=== PATIENT | female | born 1970 | race American Indian/Alaskan Native ===

== ENCOUNTER 2020-06-24 17:28 | Inpatient (IN) | payer OTHER ==
[2020-06-24] MEDS ORDERED: ASPIRIN 81 MG TAB CHEW PO ONE (17:41)
--- NOTE | 2020-06-24 17:45 | Emergency Department Report ---
ED Chest Pain HPI - General Stated Complaint: CHEST PAIN Time Seen by Provider: 06/24/20 17:41 Source: patient, EMS - History of Present Illness Initial Comments: Patient is 50 years old female with history of hypertension. Patient stated that she has been taking lisinopril 10 mg twice a day however she ran out of her medication 1 week ago. Patient brought to the emergency room via EMS from home for sudden onset of chest pain, substernal pressure-like. Patient stated that pain was 8 out of 10 however patient stated that her blood pressure completely resolved by the time she got to the ER. Patient denied any shortness of breath, fever or chills. Patient found to have a blood pressure of 229 over 118. MD Complaint: chest pain -: Sudden, This afternoon Onset: during rest Pain Location: substernal Pain Radiation: none Severity scale (0 -10): 8 Quality: tightness, heaviness Consistency: now resolved Improves With: nothing Worsens With: nothing Treatments Prior to Arrival: none - Related Data Allergies Allergy/AdvReac Type Severity Reaction Status Date / Time No Known Allergies Allergy Verified 06/24/20 18:11 Heart Score - HEART Score History: Moderately suspicious EKG: Non-specific Age: 45-65 Risk factors: 1-2 risk factors Troponin: < normal limit HEART Score: 4 - EKG Read Time Time EKG Completed: 18:08 EKG Read Time: 18:08 ED Review of Systems ROS: Stated complaint: CHEST PAIN Other details as noted in HPI Comment: All other systems reviewed and negative Respiratory: denies: cough, shortness of breath, SOB with exertion, SOB at rest Cardiovascular: chest pain. denies: palpitations Gastrointestinal: denies: abdominal pain, nausea, vomiting Musculoskeletal: denies: back pain Neurological: denies: headache, weakness, numbness, paresthesias, confusion ED Physical Exam - General General appearance: alert, in no apparent distress - Head Head exam: Present: atraumatic, normocephalic, normal inspection - Eye Eye exam: Present: normal appearance - ENT ENT exam: Present: normal exam, normal orophraynx, mucous membranes moist - Neck Neck exam: Present: normal inspection, full ROM. Absent: tenderness, meningis mus - Respiratory Respiratory exam: Present: normal lung sounds bilaterally - Cardiovascular Cardiovascular Exam: Present: regular rate, normal rhythm, normal heart sounds - GI/Abdominal GI/Abdominal exam: Present: soft, normal bowel sounds. Absent: distended, tenderness, guarding, rebound, rigid, mass, bruit, pulsatile mass, hernia - Extremities Exam Extremities exam: Present: normal inspection, full ROM, normal capillary refill. Absent: tenderness - Back Exam Back exam: Present: normal inspection, full ROM. Absent: CVA tenderness (R), CVA tenderness (L) - Neurological Exam Neurological exam: Present: alert, oriented X3, CN II-XII intact - Psychiatric Psychiatric exam: Present: normal mood - Skin Skin exam: Present: warm, intact, normal color ED Course Vital Signs 06/24/20 06/24/20 17:53 18:44 Temperature 98.4 F Pulse Rate 73 68 Respiratory 24 Rate Blood Pressure 220/126 Blood Pressure 229/118 [Left] O2 Sat by Pulse 100 Oximetry ED Medical Decision Making - Lab Data Result diagrams: 06/24/20 18:17 06/24/20 18:17 - EKG Data -: EKG Interpreted by Vt EKG shows normal: sinus rhythm Rate: normal - EKG Data Interpretation: no acute changes - Radiology Data Radiology results: report reviewed - Medical Decision Making Patient is 50 years old female with history of hypertension. Patient stated that she has been taking lisinopril 10 mg twice a day however she ran out of her medication 1 week ago. Patient brought to the emergency room via EMS from home for sudden onset of chest pain, substernal pressure-like. Patient stated that pain was 8 out of 10 however patient stated that her blood pressure completely resolved by the time she got to the ER. Patient denied any shortness of breath, fever or chills. Patient found to have a blood pressure of 229 over 118. EKG showed no ST elevation. Labs reviewed and is unremarkable. Patient received Lopressor with no significant improvement in blood pressure. Patient started on Cardene drip. Discussed the patient with Dr. Baird, he agreed to admit the patient to medical service for further management. Critical Care Time: Yes Critical care time in (mins) excluding proc time.: 30 Critical care attestation.: If time is entered above; I have spent that time in minutes in the direct care of this critically ill patient, excluding procedure time. ED Disposition Clinical Impression: Acute chest pain, Hypertensive emergency Disposition: OP ADMIT IP TO THIS HOSP Is pt being admited?: Yes Condition: Stable Instructions: Chest Pain (ED), Hypertension (ED) Referrals: PRIMARY CARE,MD [Primary Care Provider] - 3-5 Days
[2020-06-24] MEDS ORDERED: METOPROLOL TARTRATE 5 MG/5 ML INJ IV ONE (18:13)
--- NOTE | 2020-06-24 18:14 | XRay Report ---
CHEST 1 VIEW 06/24/2020 5:07 PM INDICATION / CLINICAL INFORMATION: Chest Pain. COMPARISON: 01/15/2010 FINDINGS: SUPPORT DEVICES: None. HEART / MEDIASTINUM: Mild cardiomegaly. Hilar and mediastinal contours are otherwise unremarkable. LUNGS / PLEURA: No significant pulmonary or pleural abnormality. No pneumothorax. ADDITIONAL FINDINGS: No significant additional findings. IMPRESSION: 1. No convincing evidence of acute cardiopulmonary process. 2. Cardiac silhouette appears mildly enlarged suggesting mild cardiomegaly. Signer Name: London Mcdaniel MD Signed: 06/24/2020 6:10 PM Workstation Name: [id number]
[2020-06-24 18:37] LABS: Basophils # (Auto) 0.2 K/mm3 (0.0-0.1); Basophils % (Auto) 2.5 % (0.0-1.8); Eosinophils # (Auto) 0.1 K/mm3 (0.0-0.4); Eosinophils % (Auto) 1.9 % (0.0-4.3); Hematocrit 33.9 % (30.3-42.9); Lymphocytes # (Auto) 0.8 K/mm3 (1.2-5.4); Lymphocytes % (Auto) 12.5 % (13.4-35.0); Mean Corpuscular HGB Conc 32 % (30-34); Mean Corpuscular Volume 92 fl (79-97); Monocytes # (Auto) 0.4 K/mm3 (0.0-0.8); Monocytes % (Auto) 6.6 % (0.0-7.3); Platelet Count 184 K/mm3 (140-440); Red Cell Distribution Width 19.3 % (13.2-15.2)
[2020-06-24 18:44] LABS: INR 0.95 (0.87-1.13)
[2020-06-24 18:45] LABS: Partial Thromboplastin Time 24.7 Sec. (24.2-36.6)
[2020-06-24 18:55] LABS: BUN/Creatinine Ratio 13; Blood Urea Nitrogen 24 mg/dL (7-17); Calcium 8.6 mg/dL (8.4-10.2); Hemolysis Index 6
[2020-06-24 18:59] LABS: Alanine Aminotransferase 8 units/L (7-56); Albumin 4.1 g/dL (3.9-5)
[2020-06-24 19:00] LABS: Bilirubin,Direct < 0.2 mg/dL (0-0.2)
[2020-06-24] MEDS ORDERED: niCARdipine DRIP 40 MG/200 ML BAG ONE (22:01)
[2020-06-24] MEDS: niCARdipine 50 MG in SODIUM CHLORIDE 0.9% 250ML 230 ML IV SCH (22:22)
[2020-06-24] MEDS ORDERED: oxyCODONE /ACETAMINOPHEN 5-325MG TAB PO PRN (23:45)
[2020-06-24] MEDS ORDERED: SODIUM CHLORIDE 0.45% 1000 ML 1,000 ML IV SCH (23:45)
[2020-06-24] MEDS ORDERED: MORPHINE 2 MG/1 ML INJ IV PRN (23:45)
[2020-06-24] MEDS ORDERED: FAMOTIDINE 20 MG/2 ML INJ IV SCH ×2 (23:45)
[2020-06-24] MEDS ORDERED: METOCLOPRAMIDE 10 MG/2 ML INJ IV PRN (23:45)
[2020-06-24] MEDS ORDERED: ONDANSETRON 4 MG/2 ML INJ IV PRN (23:45)
--- NOTE | 2020-06-24 23:45 | History and Physical Report ---
History of Present Illness Date of examination: 06/24/20 Date of admission: 06/24/20 19:28 Chief complaint: Substernal chest pain since 2 hours History of present illness: 50-year-old -[place] female with history of hypertension on lisinopril 10 mg twice a day brought in by EMS for sudden onset of chest pain which is substernal for the last 2 hours. Chest pain is about 7-8 on a scale of 1-10. Patient has not been taking her lisinopril for the last 1 week. Patient is noncompliant with her medications. Patient has a history of hypertension. No other than hypertension there is no significant past medical history. No exposure to coronavirus. No orthopnea. No exertional dyspnea. Heart Score - HEART Score History: Moderately suspicious EKG: Non-specific Age: 45-65 Risk factors: 1-2 risk factors Troponin: < normal limit HEART Score: 4 - EKG Read Time Time EKG Completed: 18:08 EKG Read Time: 18:08 past medical history hypertension past surgical history n/a Family history hypertension social history no smoking Review of Systems Constitutional no weight loss or weight gain no fever or chills HEENT no sore throat no post nasal drip no diplopia Neck no neck stiffness no lymph gland enlargement Chest and lungs chest pressure for 2 hours CVS no chest pain no diaphoresis no palpitations GI no nausea no vomiting no diarrhea Genitourinary system no dysuria no flank pain Musculoskeletal system no muscle pains no joint pains [employer] no syncope no seizures Skin no rash no itching Psychiatric no depression no homicidal or suicidal tendencies Hematologic no lymphedema or bruising Endocrine no polydipsia no polyuria no cold intolerance no heat intolerance Medications and Allergies Allergies Allergy/AdvReac Type Severity Reaction Status Date / Time No Known Allergies Allergy Verified 06/24/20 18:11 Active Meds: Active Medications Nicardipine HCl 50 mg/ Sodium (Chloride) 250 mls @ 25 mls/hr IV TITR THAIS; Protocol Last Titration: 06/24/20 23:00 Dose: 10 mg/hr, 50 mls/hr Documented by: Exam - Constitutional Vitals: Temp Pulse Resp BP Pulse Ox 98.4 F 68 24 220/126 100 06/24/20 17:53 06/24/20 18:44 06/24/20 17:53 06/24/20 18:44 06/24/20 17:53 General appearance: Present: no acute distress, well-nourished - EENT Eyes: Present: PERRL ENT: hearing intact, clear oral mucosa - Neck Neck: Present: supple, normal ROM - Respiratory Respiratory effort: normal Respiratory: bilateral: CTA - Cardiovascular Heart rate: 78 Rhythm: regular Heart Sounds: Present: S1 & S2. Absent: rub, click - Extremities Extremities: pulses symmetrical, No edema Peripheral Pulses: within normal limits - Abdominal General gastrointestinal: Present: soft, non-tender, non-distended, normal bowel sounds Female genitourinary: Present: normal - Integumentary Integumentary: Present: clear, warm, dry - Musculoskeletal Musculoskeletal: gait normal, strength equal bilaterally - Psychiatric Psychiatric: appropriate mood/affect, intact judgment & insight - Neurologic Neurologic: CNII-XII intact, moves all extremities HEART Score - HEART Score EKG: Non-specific Age: 45-65 Risk factors: 1-2 risk factors Troponin: Troponin T < 0.010 ng/mL (0.00-0.029) 06/24/20 20:46 Troponin: < normal limit Results - Labs CBC & Chem 7: 06/24/20 18:17 06/24/20 18:17 Labs: Laboratory Last Values WBC 6.7 K/mm3 (4.5-11.0) 06/24/20 18:17 RBC 3.70 M/mm3 (3.65-5.03) 06/24/20 18:17 Hgb 11.0 gm/dl (10.1-14.3) 06/24/20 18:17 Hct 33.9 % (30.3-42.9) 06/24/20 18:17 MCV 92 fl (79-97) 06/24/20 18:17 MCH 30 pg (28-32) 06/24/20 18:17 MCHC 32 % (30-34) 06/24/20 18:17 RDW 19.3 % (13.2-15.2) H 06/24/20 18:17 Plt Count 184 K/mm3 (140-440) 06/24/20 18:17 Lymph % (Auto) 12.5 % (13.4-35.0) L 06/24/20 18:17 [place] % (Auto) 6.6 % (0.0-7.3) 06/24/20 18:17 Eos % (Auto) 1.9 % (0.0-4.3) 06/24/20 18:17 Baso % (Auto) 2.5 % (0.0-1.8) H 06/24/20 18:17 Lymph # (Auto) 0.8 K/mm3 (1.2-5.4) L 06/24/20 18:17 [place] # (Auto) 0.4 K/mm3 (0.0-0.8) 06/24/20 18:17 Eos # (Auto) 0.1 K/mm3 (0.0-0.4) 06/24/20 18:17 Baso # (Auto) 0.2 K/mm3 (0.0-0.1) H 06/24/20 18:17 Seg Neutrophils % 76.5 % (40.0-70.0) H 06/24/20 18:17 Seg Neutrophils # 5.1 K/mm3 (1.8-7.7) 06/24/20 18:17 PT 12.5 Sec. (12.2-14.9) 06/24/20 18:17 INR 0.95 (0.87-1.13) 06/24/20 18:17 APTT 24.7 Sec. (24.2-36.6) 06/24/20 18:17 Sodium 137 mmol/L (137-145) 06/24/20 18:17 Potassium 4.5 mmol/L (3.6-5.0) 06/24/20 18:17 Chloride 102.6 mmol/L (98-107) 06/24/20 18:17 Carbon Dioxide 26 mmol/L (22-30) 06/24/20 18:17 Anion Gap 13 mmol/L 06/24/20 18:17 BUN 24 mg/dL (7-17) H 06/24/20 18:17 Creatinine 1.9 mg/dL (0.6-1.2) H 06/24/20 18:17 Estimated GFR 34 ml/min 06/24/20 18:17 BUN/Creatinine Ratio 13 % 06/24/20 18:17 Glucose 81 mg/dL (65-100) 06/24/20 18:17 Calcium 8.6 mg/dL (8.4-10.2) 06/24/20 18:17 Total Bilirubin 0.30 mg/dL (0.1-1.2) 06/24/20 18:17 Direct Bilirubin < 0.2 mg/dL (0-0.2) 06/24/20 18:17 Indirect Bilirubin 0.1 mg/dL 06/24/20 18:17 AST 16 units/L (5-40) 06/24/20 18:17 ALT 8 units/L (7-56) 06/24/20 18:17 Alkaline Phosphatase 57 units/L (35-129) 06/24/20 18:17 Troponin T < 0.010 ng/mL (0.00-0.029) 06/24/20 20:46 NT-Pro-B Natriuret Pep 2780 pg/mL (0-450) H 06/24/20 18:33 Total Protein 6.6 g/dL (6.3-8.2) 06/24/20 18:17 Albumin 4.1 g/dL (3.9-5) 06/24/20 18:17 Albumin/Globulin Ratio 1.6 % 06/24/20 18:17 Short CBC 06/24/20 Range/Units 18:17 WBC 6.7 (4.5-11.0) K/mm3 Hgb 11.0 (10.1-14.3) gm/dl Hct 33.9 (30.3-42.9) % Plt Count 184 (140-440) K/mm3 BMP 06/24/20 18:17 Sodium 137 Potassium 4.5 Chloride 102.6 Carbon Dioxide 26 BUN 24 H Creatinine 1.9 H Glucose 81 Calcium 8.6 Cardiac Enzymes 06/24/20 06/24/20 Range/Units 18:17 20:46 Troponin T < 0.010 < 0.010 (0.00-0.029) ng/mL Liver Function 06/24/20 Range/Units 18:17 Total Bilirubin 0.30 (0.1-1.2) mg/dL Direct Bilirubin < 0.2 (0-0.2) mg/dL AST 16 (5-40) units/L ALT 8 (7-56) units/L Alkaline Phosphatase 57 (35-129) units/L Albumin 4.1 (3.9-5) g/dL - Imaging and Cardiology EKG: report reviewed (Sinus rhythm, heart rate of 64/min, no LVH by voltage criteria. No acute ST-T wave changes.) Chest x-ray: report reviewed (No acute findings., Mild cardiomegaly.) Assessment and Plan Advance Directives: Yes (Full code) Plan of care discussed with patient/family: Yes - Patient Problems (1) Hypertensive emergency Current Visit: Yes Status: Acute Plan to address problem: Patient initiated on IV Cardene drip. Lisinopril stopped. Well patient started on valsartan 160 every 12 Hydralazine 50 every 8 Coreg 12.5 every 12. Patient to be admitted to ICU. (2) Acute coronary syndrome Current Visit: Yes Status: Acute Plan to address problem: Work-up for chest pain rule out [place] protocol Serial troponins Lexiscan if possible on Friday (3) PERCY (acute kidney injury) Current Visit: Yes Status: Acute Plan to address problem: Possible underlying chronic kidney disease secondary to hypertension which is uncontrolled IV half-normal saline for now Recheck creatinine level in the morning (4) DVT prophylaxis Current Visit: Yes Status: Acute Plan to address problem: On heparin and GI prophylaxis
[2020-06-25] MEDS: hydrALAZINE 25 MG TAB PO SCH ×4 (00:37→21:23)
[2020-06-25] MEDS: VALSARTAN 160MG TAB PO SCH ×2 (00:38→10:08)
[2020-06-25] MEDS: carvediloL 12.5 MG TAB PO SCH ×3 (00:38→21:23)
[2020-06-25] MEDS: HEPARIN 5,000 UNIT/1 ML VIAL SUB-Q SCH ×3 (00:39→21:25)
[2020-06-25] MEDS: niCARdipine 50 MG in SODIUM CHLORIDE 0.9% 250ML 230 ML IV SCH ×2 (02:39→07:00)
[2020-06-25 08:30] LABS: Albumin 3.3 g/dL (3.9-5); Calcium 8.2 mg/dL (8.4-10.2)
[2020-06-25] MEDS: FAMOTIDINE 10 MG TAB PO SCH ×2 (10:09→21:23)
--- NOTE | 2020-06-25 11:04 | Consultation ---
History of Present Illness - Reason for Consult Consult date: 06/25/20 Hypertensive Emergency - History of Present Illness 50 y/o female with known HTN admitted with Hypertensive Emergency with chest pain and acute renal failure (presumed). Patient has not been evaluated in this system before. She presented to the ED on yesterday with chest pain and found to have systolics >200 and Diastolics >100. No shortness of breath. No changes in meds but did run out of bp meds about 1 week prior. Past History Past Medical History: hypertension Past Surgical History: No surgical history Social history: no significant social history Family history: no significant family history Medications and Allergies Allergies Allergy/AdvReac Type Severity Reaction Status Date / Time No Known Allergies Allergy Verified 06/24/20 18:11 Active Meds: Active Medications Acetaminophen (Acetaminophen 325 Mg Tab) 650 mg PO Q4H PRN PRN Reason: Pain MILD(1-3)/Fever >100.5/JUAREZ Amlodipine Besylate (Amlodipine 5 Mg Tab) 5 mg PO QDAY THAIS Carvedilol (Carvedilol 12.5 Mg Tab) 12.5 mg PO BID [facility] Last Admin: 06/25/20 10:08 Dose: Not Given Documented by: Famotidine (Famotidine 10 Mg Tab) 10 mg PO BID [facility] Last Admin: 06/25/20 10:09 Dose: 10 mg Documented by: Heparin Sodium (Porcine) (Heparin 5,000 Unit/1 Ml Vial) 5,000 unit SUB-Q Q12HR [facility] Last Admin: 06/25/20 10:09 Dose: 5,000 unit Documented by: Hydralazine HCl (Hydralazine 25 Mg Tab) 50 mg PO Q8HR [facility] Last Admin: 06/25/20 06:28 Dose: 50 mg Documented by: Nicardipine HCl 50 mg/ Sodium (Chloride) 250 mls @ 25 mls/hr IV TITR THAIS; Protocol Last Titration: 06/25/20 08:17 Dose: 0 mg/hr, 0 mls/hr Documented by: Sodium Chloride (Nacl 0.45% 1000 Ml) 1,000 mls @ 42 mls/hr IV DIRECT THAIS Last Admin: 06/25/20 00:43 Dose: 42 mls/hr Documented by: Metoclopramide HCl (Metoclopramide 10 Mg/2 Ml Inj) 10 mg IV Q6H PRN PRN Reason: Nausea And Vomiting Morphine Sulfate (Morphine 2 Mg/1 Ml Inj) 2 mg IV Q4H PRN PRN Reason: Pain, Moderate (4-6) Ondansetron HCl (Ondansetron 4 Mg/2 Ml Inj) 4 mg IV Q8H PRN PRN Reason: Nausea And Vomiting Oxycodone/Acetaminophen (Oxycodone /Acetaminophen 5-325mg Tab) 1 tab PO Q6H PRN PRN Reason: Pain, Moderate (4-6) Sodium Chloride (Sodium Chloride 0.9% 10 Ml Flush Syringe) 10 ml IV BID [facility] Last Admin: 06/25/20 10:10 Dose: 10 ml Documented by: Sodium Chloride (Sodium Chloride 0.9% 10 Ml Flush Syringe) 10 ml IV PRN PRN PRN Reason: LINE FLUSH Valsartan (Valsartan 160mg Tab) 160 mg PO Q12HR [facility] Last Admin: 06/25/20 10:08 Dose: Not Given Documented by: Review of Systems All systems: negative Exam - Constitutional Vitals: Temp Pulse Resp BP Pulse Ox 98.1 F 57 L 13 138/82 98 06/25/20 08:00 06/25/20 10:08 06/25/20 08:11 06/25/20 10:08 06/25/20 08:11 Results - Labs CBC & Chem 7: 06/24/20 18:17 06/25/20 07:25 Labs: Abnormal lab results 06/24/20 06/24/20 06/24/20 Range/Units 18:17 18:17 18:33 RDW 19.3 H (13.2-15.2) % Lymph % (Auto) 12.5 L (13.4-35.0) % Baso % (Auto) 2.5 H (0.0-1.8) % Lymph # (Auto) 0.8 L (1.2-5.4) K/mm3 Baso # (Auto) 0.2 H (0.0-0.1) K/mm3 Seg Neutrophils % 76.5 H (40.0-70.0) % BUN 24 H (7-17) mg/dL Creatinine 1.9 H (0.6-1.2) mg/dL Calcium (8.4-10.2) mg/dL ALT (7-56) units/L NT-Pro-B Natriuret Pep 2780 H (0-450) pg/mL Albumin (3.9-5) g/dL 06/25/20 Range/Units 07:25 RDW (13.2-15.2) % Lymph % (Auto) (13.4-35.0) % Baso % (Auto) (0.0-1.8) % Lymph # (Auto) (1.2-5.4) K/mm3 Baso # (Auto) (0.0-0.1) K/mm3 Seg Neutrophils % (40.0-70.0) % BUN 22 H (7-17) mg/dL Creatinine 1.9 H (0.6-1.2) mg/dL Calcium 8.2 L (8.4-10.2) mg/dL ALT 6 L (7-56) units/L NT-Pro-B Natriuret Pep (0-450) pg/mL Albumin 3.3 L (3.9-5) g/dL - Imaging and Cardiology Chest x-ray: image reviewed (clear, cardiomegaly) Assessment and Plan 50 y/o female with hypertensive urgency and chest pain. 1. BP and HR and control 2. Chest pain is concerning, IMS has consulted cardiology. My concern would be dissection but unable to check CTA at this time given renal function. May need renal consult. Chest pain is improving 3. Suggest holding ARB with renal failure. Could add norvasc to hydralazine and coreg if needed 4. Consider echo given heart size on CXR 5. Stable for transfer to floor. Systolics to 140-160 are acceptable. Follow up cards recs. CCT 31 minutes.
--- NOTE | 2020-06-25 11:28 | Consultation ---
History of Present Illness Consult date: 06/25/20 Requesting physician: HEBERT HARTMAN Consult reason: chest pain History of present illness: Pt is a 50-year-old AA female with a past medical hx of HTN (dx > 10 years ago) who presented with complaints of acute onset chest pain that started around 4pm yesterday when she arrived at work. She describes the pain as substernal, non- radiating pressure that lasted approximately 30 min before resolving spontaneously. No aggravating or relieving factors. Pt states she was not exerting herself at the onset of chest pain. 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 Pt denies any additional associated sx, including SOB, palpitations, dizziness, lightheadedness, syncope, abd pain, or N/V. Trop neg x 3. ECG reveals no acute ischemic changes. BP significantly elevated upon arrival 229/118 mmHg, with evidence of PERCY on labs at admission as well. Pt states she has been out of her antihypertensive meds x 1 week because s he has been busy caring for her mother, who has stage 4 breast CA. Pt has not been seen by our group previously. No prior cardiac workup available for review. Past History Past Medical History: hypertension Past Surgical History: No surgical history Social history: smoking (3 Black & Milds per day), alcohol abuse (3-4 drinks x 3-4 days per week) Family history: CAD (father ([place] in his 70s)) Medications and Allergies Allergies Allergy/AdvReac Type Severity Reaction Status Date / Time No Known Allergies Allergy Verified 06/24/20 18:11 Active Meds: Active Medications Acetaminophen (Acetaminophen 325 Mg Tab) 650 mg PO Q4H PRN PRN Reason: Pain MILD(1-3)/Fever >100.5/JUAREZ Amlodipine Besylate (Amlodipine 5 Mg Tab) 5 mg PO QDAY [facility] Carvedilol (Carvedilol 12.5 Mg Tab) 12.5 mg PO BID [facility] Last Admin: 06/25/20 10:08 Dose: Not Given Documented by: Famotidine (Famotidine 10 Mg Tab) 10 mg PO BID [facility] Last Admin: 06/25/20 10:09 Dose: 10 mg Documented by: Heparin Sodium (Porcine) (Heparin 5,000 Unit/1 Ml Vial) 5,000 unit SUB-Q Q12HR [facility] Last Admin: 06/25/20 10:09 Dose: 5,000 unit Documented by: Hydralazine HCl (Hydralazine 25 Mg Tab) 50 mg PO Q8HR [facility] Last Admin: 06/25/20 06:28 Dose: 50 mg Documented by: Nicardipine HCl 50 mg/ Sodium (Chloride) 250 mls @ 25 mls/hr IV TITR THAIS; Pro tocol Last Titration: 06/25/20 08:17 Dose: 0 mg/hr, 0 mls/hr Documented by: Sodium Chloride (Nacl 0.45% 1000 Ml) 1,000 mls @ 42 mls/hr IV DIRECT [facility] Last Admin: 06/25/20 00:43 Dose: 42 mls/hr Documented by: Metoclopramide HCl (Metoclopramide 10 Mg/2 Ml Inj) 10 mg IV Q6H PRN PRN Reason: Nausea And Vomiting Morphine Sulfate (Morphine 2 Mg/1 Ml Inj) 2 mg IV Q4H PRN PRN Reason: Pain, Moderate (4-6) Ondansetron HCl (Ondansetron 4 Mg/2 Ml Inj) 4 mg IV Q8H PRN PRN Reason: Nausea And Vomiting Oxycodone/Acetaminophen (Oxycodone /Acetaminophen 5-325mg Tab) 1 tab PO Q6H PRN PRN Reason: Pain, Moderate (4-6) Sodium Chloride (Sodium Chloride 0.9% 10 Ml Flush Syringe) 10 ml IV BID [facility] Last Admin: 06/25/20 10:10 Dose: 10 ml Documented by: Sodium Chloride (Sodium Chloride 0.9% 10 Ml Flush Syringe) 10 ml IV PRN PRN PRN Reason: LINE FLUSH Valsartan (Valsartan 160mg Tab) 160 mg PO Q12HR [facility] Last Admin: 06/25/20 10:08 Dose: Not Given Documented by: Review of Systems Constitutional: no fever, no chills, no sweats Ears, nose, mouth and throat: no nasal congestion, no sore throat Cardiovascular: chest pain, edema (occasional ankle swelling), no orthopnea, no palpitations, no rapid/irregular heart beat, no syncope, no lightheadedness, no shortness of breath, no dyspnea on exertion, no paroxysmal nocturnal dyspnea, no claudication Respiratory: no cough, no shortness of breath, no dyspnea on exertion, no wheezing Gastrointestinal: no abdominal pain, no nausea, no vomiting, no diarrhea, no constipation Genitourinary Female: no pelvic pain, no flank pain, no dysuria Musculoskeletal: no neck stiffness, no neck pain, no myalgias Integumentary: no rash, no wounds Neurological: no head injury, no paralysis, no weakness, no parathesias, no numbness, no tingling, no seizures, no syncope, no vertigo, no headaches Psychiatric: no anxiety Endocrine: no cold intolerance, no heat intolerance, no polydipsia, no polyuria Hematologic/Lymphatic: no easy bruising, no easy bleeding Allergic/Immunologic: no anaphylaxis Physical Examination Last Vital Signs Temp 98.1 F 06/25/20 08:00 Pulse 57 L 06/25/20 10:08 Resp 13 06/25/20 08:11 BP 138/82 06/25/20 10:08 Pulse Ox 98 06/25/20 08:11 General appearance: no acute distress HEENT: Positive: EOMI, Normocephaly, Mucus Membranes Moist Neck: Positive: neck supple, trachea midline. Negative: JVD/HJR Cardiac: Positive: Reg Rate and Rhythm, S1/S2 Lungs: Positive: clear to auscultation Neuro: Positive: Grossly Intact Abdomen: Positive: Soft. Negative: Tender Skin: Negative: Rash Musculoskeletal: Normal Range of Motion Extremities: Present: upper extr. pulses, lower extr. pulses. Absent: edema Results 06/24/20 18:17 06/25/20 07:25 Cardiac Enzymes 06/24/20 06/25/20 Range/Units 18:17 07:25 AST 16 16 (5-40) units/L Coagulation 06/24/20 Range/Units 18:17 PT 12.5 (12.2-14.9) Sec. INR 0.95 (0.87-1.13) APTT 24.7 (24.2-36.6) Sec. CBC 06/24/20 Range/Units 18:17 WBC 6.7 (4.5-11.0) K/mm3 RBC 3.70 (3.65-5.03) M/mm3 Hgb 11.0 (10.1-14.3) gm/dl Hct 33.9 (30.3-42.9) % Plt Count 184 (140-440) K/mm3 Lymph # (Auto) 0.8 L (1.2-5.4) K/mm3 [place] # (Auto) 0.4 (0.0-0.8) K/mm3 Eos # (Auto) 0.1 (0.0-0.4) K/mm3 Baso # (Auto) 0.2 H (0.0-0.1) K/mm3 Comprehensive Metabolic Panel 06/24/20 06/24/20 06/25/20 Range/Units 18:17 18:17 07:25 Sodium 137 138 (137-145) mmol/L Potassium 4.5 3.6 (3.6-5.0) mmol/L Chloride 102.6 105.3 (98-107) mmol/L Carbon Dioxide 26 23 (22-30) mmol/L BUN 24 H 22 H (7-17) mg/dL Creatinine 1.9 H 1.9 H (0.6-1.2) mg/dL Glucose 81 98 (65-100) mg/dL Calcium 8.6 8.2 L (8.4-10.2) mg/dL Direct Bilirubin < 0.2 (0-0.2) mg/dL Indirect Bilirubin 0.1 mg/dL AST 16 16 (5-40) units/L ALT 8 6 L (7-56) units/L Alkaline Phosphatase 57 50 (35-129) units/L Total Protein 6.6 6.4 (6.3-8.2) g/dL Albumin 4.1 3.3 L (3.9-5) g/dL - Imaging and Cardiology Echo: pending EKG: report reviewed, image reviewed - EKG Interpretation EKG: no acute changes EKG interpretations - Telemetry EKG Rhythm: Sinus Rhythm - EKG Sinus rhythms and dysrhythmias: sinus rhythm Chamber hypertrophy or enlargement: left ventricular hypertro Assessment and Plan Obtain repeat ECG given misplacement of leads on ECG performed at admission. Echo pending. Plan for Lexiscan stress MPI in AM. NPO after midnight. ACS ruled out. Suspect chest pain in the setting of accelerated HTN. Will optimize antihypertensive regimen. Agree with holding ARB due to PERCY. Wean IV Cardene gtt as able. Lifestyle changes, including smoking cessation & reduction of EtOH use discussed with pt at bedside. Pt seen in conjunction with Dr. Caceres, who agrees with the assessment and plan of care. - Patient Problems (1) Chest pain Current Visit: Yes Status: Acute (2) Hypertensive emergency Current Visit: Yes Status: Acute (3) PERCY (acute kidney injury) Current Visit: Yes Status: Acute (4) ETOH abuse Current Visit: Yes Status: Chronic (5) Tobacco abuse Current Visit: Yes Status: Chronic
--- NOTE | 2020-06-25 12:24 | Progress Note ---
Assessment and Plan Assessment and plan: This is a 50-year-old female with hypertension with situational medical noncompliance, EtOH and nicotine abuse admitted with hypertensive emergency and possible PERCY on Cardizem gtt. Hypertensive emergency ACS ruled out Possible acute kidney injury EtOH and tobacco abuse -CCM, cardiology consulted, appreciate evaluation -S/p Cardizem drip -P.o. hydralazine, carvedilol, amlodipine -06/26 Lexiscan -06/25 Echo pending -Avoid ACEi and ARB in setting of possible PERCY -Cardiac diet -Tobacco and ETOH cessation counseling -Lipid panel pending -Trend BMP DVT/GI prophylaxis: Heparin subcu, SCDs to bilateral lower extremities while in bed, PPI Disposition: Transfer to floor The high probability of a clinically significant, sudden or life threatening deterioration of the [cardio] system(s) required my full and direct attention, intervention and personal management. The aggregate critical care time was [31] minutes. This time is in addition to time spent performing reported procedures but includes the following: [x] Data Review and interpretation [x] Patient assessment and monitoring of vital signs [x] Documentation [x] Medication orders and management History Interval history: This is a 50-year-old female with hypertension with situational medical noncompliance, EtOH and nicotine abuse who presented the emergency department on 06/24 with complaints of sudden onset of substernal chest pain over the past 2 hours rated a 7-8/10. Upon arrival to the emergency department patient's blood pressure was 229/118 and work-up in the emergency department reveals elevated BUN/creatinine. Patient was admitted to the hospital service with consult to [facility] and cardiology. She was started on a Cardizem drip. 06/25: Patient has been weaned off Cardizem drip and is on p.o. antihypertensives. Cardiology consulted today. Patient was started on IV hydration for possible decrease in kidney function test. Lexiscan in the a.m, NPO at [place]. Hospitalist Physical - Constitutional Vitals: Temp Pulse Resp BP Pulse Ox 98.1 F 57 L 13 138/82 98 06/25/20 08:00 06/25/20 10:08 06/25/20 08:11 06/25/20 10:08 06/25/20 08:11 General appearance: Present: no acute distress - EENT Eyes: Present: PERRL, EOM intact ENT: hearing intact, clear oral mucosa - Neck Neck: Present: supple, normal ROM - Respiratory Respiratory effort: normal Respiratory: bilateral: diminished - Cardiovascular Rhythm: regular Heart Sounds: Present: S1 & S2. Absent: systolic murmur - Extremities Extremities: no ischemia, pulses intact, pulses symmetrical, No edema, normal temperature, normal color Peripheral Pulses: within normal limits - Abdominal General gastrointestinal: soft, non-tender, non-distended, normal bowel sounds - Integumentary Integumentary: Present: warm, dry - Psychiatric Psychiatric: cooperative - Neurologic Neurologic: CNII-XII intact, moves all extremities - Allied Health Allied health notes reviewed: nursing HEART Score - HEART Score EKG: Non-specific Age: 45-65 Risk factors: 1-2 risk factors Troponin: Troponin T < 0.010 ng/mL (0.00-0.029) 06/25/20 01:37 Troponin: < normal limit Results - Labs CBC & Chem 7: 06/24/20 18:17 06/25/20 07:25 Labs: Laboratory Last Values WBC 6.7 K/mm3 (4.5-11.0) 06/24/20 18:17 RBC 3.70 M/mm3 (3.65-5.03) 06/24/20 18:17 Hgb 11.0 gm/dl (10.1-14.3) 06/24/20 18:17 Hct 33.9 % (30.3-42.9) 06/24/20 18:17 MCV 92 fl (79-97) 06/24/20 18:17 MCH 30 pg (28-32) 06/24/20 18:17 MCHC 32 % (30-34) 06/24/20 18:17 RDW 19.3 % (13.2-15.2) H 06/24/20 18:17 Plt Count 184 K/mm3 (140-440) 06/24/20 18:17 Lymph % (Auto) 12.5 % (13.4-35.0) L 06/24/20 18:17 [place] % (Auto) 6.6 % (0.0-7.3) 06/24/20 18:17 Eos % (Auto) 1.9 % (0.0-4.3) 06/24/20 18:17 Baso % (Auto) 2.5 % (0.0-1.8) H 06/24/20 18:17 Lymph # (Auto) 0.8 K/mm3 (1.2-5.4) L 06/24/20 18:17 [place] # (Auto) 0.4 K/mm3 (0.0-0.8) 06/24/20 18:17 Eos # (Auto) 0.1 K/mm3 (0.0-0.4) 06/24/20 18:17 Baso # (Auto) 0.2 K/mm3 (0.0-0.1) H 06/24/20 18:17 Seg Neutrophils % 76.5 % (40.0-70.0) H 06/24/20 18:17 Seg Neutrophils # 5.1 K/mm3 (1.8-7.7) 06/24/20 18:17 PT 12.5 Sec. (12.2-14.9) 06/24/20 18:17 INR 0.95 (0.87-1.13) 06/24/20 18:17 APTT 24.7 Sec. (24.2-36.6) 06/24/20 18:17 Sodium 138 mmol/L (137-145) 06/25/20 07:25 Potassium 3.6 mmol/L (3.6-5.0) 06/25/20 07:25 Chloride 105.3 mmol/L (98-107) 06/25/20 07:25 Carbon Dioxide 23 mmol/L (22-30) 06/25/20 07:25 Anion Gap 13 mmol/L 06/25/20 07:25 BUN 22 mg/dL (7-17) H 06/25/20 07:25 Creatinine 1.9 mg/dL (0.6-1.2) H 06/25/20 07:25 Estimated GFR 34 ml/min 06/25/20 07:25 BUN/Creatinine Ratio 12 % 06/25/20 07:25 Glucose 98 mg/dL (65-100) 06/25/20 07:25 Hemoglobin A1c 4.8 % (4-6) 06/25/20 07:25 Calcium 8.2 mg/dL (8.4-10.2) L 06/25/20 07:25 Total Bilirubin 0.30 mg/dL (0.1-1.2) 06/25/20 07:25 Direct Bilirubin < 0.2 mg/dL (0-0.2) 06/24/20 18:17 Indirect Bilirubin 0.1 mg/dL 06/24/20 18:17 AST 16 units/L (5-40) 06/25/20 07:25 ALT 6 units/L (7-56) L 06/25/20 07:25 Alkaline Phosphatase 50 units/L (35-129) 06/25/20 07:25 Troponin T < 0.010 ng/mL (0.00-0.029) 06/25/20 01:37 NT-Pro-B Natriuret Pep 2780 pg/mL (0-450) H 06/24/20 18:33 Total Protein 6.4 g/dL (6.3-8.2) 06/25/20 07:25 Albumin 3.3 g/dL (3.9-5) L 06/25/20 07:25 Albumin/Globulin Ratio 1.1 % 06/25/20 07:25 Lombardo/IV: Voiding Method External Female Catheter Active Medications - Current Medications Current Medications: Generic Name Dose Route Start Last Admin Trade Name Freq PRN Reason Stop Dose Admin Acetaminophen 650 mg 06/24/20 23:45 Acetaminophen 325 Mg Tab PO Q4H PRN Pain MILD(1-3)/Fever >100.5/JUAREZ Amlodipine Besylate 5 mg 06/26/20 10:00 Amlodipine 5 Mg Tab PO QDAY [facility] Carvedilol 12.5 mg 06/24/20 23:45 06/25/20 10:08 Carvedilol 12.5 Mg Tab PO Not Given BID [facility]AIS Famotidine 10 mg 06/25/20 10:00 06/25/20 10:09 Famotidine 10 Mg Tab PO 10 mg BID THAIS Administration Heparin Sodium (Porcine) 5,000 unit 06/24/20 23:45 06/25/20 10:09 Heparin 5,000 Unit/1 Ml Vial SUB-Q 5,000 unit Q12HR THAIS Administration Hydralazine HCl 50 mg 06/24/20 23:45 06/25/20 06:28 Hydralazine 25 Mg Tab PO 50 mg Q8HR [facility] Administration Nicardipine HCl 50 mg/ Sodium 250 mls @ 25 mls/hr 06/24/20 20:00 06/25/20 08:17 Chloride IV 0 mg/hr TITR THAIS 0 mls/hr Titration Protocol 5 MG/HR Sodium Chloride 1,000 mls @ 42 mls/hr 06/24/20 23:45 06/25/20 00:43 Nacl 0.45% 1000 Ml IV 42 mls/hr DIRECT THAIS Administration Metoclopramide HCl 10 mg 06/24/20 23:45 Metoclopramide 10 Mg/2 Ml Inj IV Q6H PRN Nausea And Vomiting Morphine Sulfate 2 mg 06/24/20 23:45 Morphine 2 Mg/1 Ml Inj IV Q4H PRN Pain, Moderate (4-6) Ondansetron HCl 4 mg 06/24/20 23:45 Ondansetron 4 Mg/2 Ml Inj IV Q8H PRN Nausea And Vomiting Oxycodone/Acetaminophen 1 tab 06/24/20 23:45 Oxycodone /Acetaminophen 5-325mg Tab PO Q6H PRN Pain, Moderate (4-6) Sodium Chloride 10 ml 06/25/20 10:00 06/25/20 10:10 Sodium Chloride 0.9% 10 Ml Flush Syringe IV 10 ml BID THAIS Administration Sodium Chloride 10 ml 06/24/20 23:45 Sodium Chloride 0.9% 10 Ml Flush Syringe IV PRN PRN LINE FLUSH
[2020-06-25] MEDS: ACETAMINOPHEN 325 MG TAB PO PRN (12:46)
[2020-06-25] MEDS ORDERED: SODIUM CHLORIDE 0.9% 1000 ML 1,000 ML IV SCH (14:30)
[2020-06-25] MEDS ORDERED: amLODIPine 5 MG TAB PO ONE (18:15)
[2020-06-25] MEDS ORDERED: NITROGLYCERIN 0.4 MG TAB SUBL SL PRN (19:04)
[2020-06-26] MEDS: hydrALAZINE 25 MG TAB PO SCH (05:36)
[2020-06-26 06:42] LABS: Calcium 8.3 mg/dL (8.4-10.2)
[2020-06-26 06:46] LABS: Chol/HDL Ratio 2.86 %
[2020-06-26] MEDS ORDERED: hydrALAZINE 25 MG TAB PO SCH (08:00)
[2020-06-26] MEDS ORDERED: REGADENOSON 0.4 MG/5 ML INJ IV ONE (08:32)
[2020-06-26] MEDS: HEPARIN 5,000 UNIT/1 ML VIAL SUB-Q SCH ×2 (09:59→21:30)
[2020-06-26] MEDS: FAMOTIDINE 10 MG TAB PO SCH ×2 (10:00→21:30)
[2020-06-26] MEDS ORDERED: amLODIPine 5 MG TAB PO SCH ×2 (10:00)
[2020-06-26] MEDS: carvediloL 12.5 MG TAB PO SCH ×2 (10:00→21:30)
[2020-06-26] MEDS: POTASSIUM CHLORIDE 10 MEQ 10 MEQ/100 ML BAG IV SCH ×3 (10:01→13:29)
--- NOTE | 2020-06-26 10:06 | Progress Note ---
Assessment and Plan Assessment and plan: This is a 50-year-old female with hypertension with situational medical noncompliance, EtOH and nicotine abuse admitted with hypertensive emergency and possible PERCY on Cardizem gtt. #Hypertensive emergency s/p nicardipine drip Now on p.o. blood pressure medications Increase hydralazine 200 every 8 Increase amlodipine to 10 mg daily Continue to monitor blood pressure closely #Chest pain -likely related to accelerated HTN. Plan for Lexiscan this a.m. per cardiology Cardiology recommendations appreciated #PERCY Likely vasomotor nephropathy Possibly has CKD-Baseline creatinine not known Creatinine between 1.9-2 Continue to monitor Avoid nephrotoxic medications #Tobacco abuse Tobacco abuse counseling provided #Alcohol abuse Alcohol abuse counseling provided DVT/GI prophylaxis: Heparin subcu, SCDs to bilateral lower extremities while in bed, PPI Disposition: Home when stable History Interval history: This is a 50-year-old female with hypertension with situational medical noncompliance, EtOH and nicotine abuse who presented the emergency department on 06/24 with complaints of sudden onset of substernal chest pain over the past 2 hours rated a 7-8/10. Upon arrival to the emergency department patient's blood pressure was 229/118 and work-up in the emergency department reveals elevated BUN/creatinine. Patient was admitted to the hospital service with consult to [facility] and cardiology. She was started on a Cardizem drip. 06/25: Patient has been weaned off Cardizem drip and is on p.o. antihypertensives. Cardiology consulted today. Patient was started on IV hydration for possible decrease in kidney function test. Lexiscan in the a.m, NPO at [place]. /10. Blood pressure is still elevated this morning. Increased hydralazine to 100 every 8. Increased amlodipine to 10 mg daily. Plan for Lexiscan this morning. Labs reviewed-renal function is stable. Hospitalist Physical - Physical exam Narrative exam: VITAL SIGNS: Reviewed. GENERAL: Awake HEAD: No signs of head trauma. EYES: Pupils are equal. Extraocular motions intact. MOUTH: Oropharynx is normal. NECK: No adenopathy, no JVD. CHEST: Chest with diminished breath sounds bilaterally. No wheezes, rales, or rhonchi. CARDIAC: normal S1 and S2, without murmurs, gallops, or rubs. ABDOMEN: Soft, non tender and non distended. No rebound or guarding, and no masses palpated. Bowel Sounds normal. MUSCULOSKELETAL: No edema NEUROLOGIC EXAM: Alert and oriented x3. No focal neurologic deficits SKIN: No obvious lesions - Constitutional Vitals: Temp Pulse Resp BP Pulse Ox 98.7 F 65 16 169/93 95 06/26/20 05:19 06/26/20 05:36 06/26/20 05:19 06/26/20 05:36 06/26/20 05:19 HEART Score - HEART Score EKG: Non-specific Age: 45-65 Risk factors: 1-2 risk factors Troponin: Troponin T < 0.010 ng/mL (0.00-0.029) 06/25/20 01:37 Troponin: < normal limit Results - Labs CBC & Chem 7: 06/24/20 18:17 06/26/20 05:31 Labs: Laboratory Last Values WBC 6.7 K/mm3 (4.5-11.0) 06/24/20 18:17 RBC 3.70 M/mm3 (3.65-5.03) 06/24/20 18:17 Hgb 11.0 gm/dl (10.1-14.3) 06/24/20 18:17 Hct 33.9 % (30.3-42.9) 06/24/20 18:17 MCV 92 fl (79-97) 06/24/20 18:17 MCH 30 pg (28-32) 06/24/20 18:17 MCHC 32 % (30-34) 06/24/20 18:17 RDW 19.3 % (13.2-15.2) H 06/24/20 18:17 Plt Count 184 K/mm3 (140-440) 06/24/20 18:17 Lymph % (Auto) 12.5 % (13.4-35.0) L 06/24/20 18:17 [place] % (Auto) 6.6 % (0.0-7.3) 06/24/20 18:17 Eos % (Auto) 1.9 % (0.0-4.3) 06/24/20 18:17 Baso % (Auto) 2.5 % (0.0-1.8) H 06/24/20 18:17 Lymph # (Auto) 0.8 K/mm3 (1.2-5.4) L 06/24/20 18:17 [place] # (Auto) 0.4 K/mm3 (0.0-0.8) 06/24/20 18:17 Eos # (Auto) 0.1 K/mm3 (0.0-0.4) 06/24/20 18:17 Baso # (Auto) 0.2 K/mm3 (0.0-0.1) H 06/24/20 18:17 Seg Neutrophils % 76.5 % (40.0-70.0) H 06/24/20 18:17 Seg Neutrophils # 5.1 K/mm3 (1.8-7.7) 06/24/20 18:17 PT 12.5 Sec. (12.2-14.9) 06/24/20 18:17 INR 0.95 (0.87-1.13) 06/24/20 18:17 APTT 24.7 Sec. (24.2-36.6) 06/24/20 18:17 Sodium 137 mmol/L (137-145) 06/26/20 05:31 Potassium 3.5 mmol/L (3.6-5.0) L 06/26/20 05:31 Chloride 104.4 mmol/L (98-107) 06/26/20 05:31 Carbon Dioxide 23 mmol/L (22-30) 06/26/20 05:31 Anion Gap 13 mmol/L 06/26/20 05:31 BUN 23 mg/dL (7-17) H 06/26/20 05:31 Creatinine 2.0 mg/dL (0.6-1.2) H 06/26/20 05:31 Estimated GFR 32 ml/min 06/26/20 05:31 BUN/Creatinine Ratio 12 % 06/26/20 05:31 Glucose 83 mg/dL (65-100) 06/26/20 05:31 Hemoglobin A1c 4.8 % (4-6) 06/25/20 07:25 Calcium 8.3 mg/dL (8.4-10.2) L 06/26/20 05:31 Total Bilirubin 0.30 mg/dL (0.1-1.2) 06/25/20 07:25 Direct Bilirubin < 0.2 mg/dL (0-0.2) 06/24/20 18:17 Indirect Bilirubin 0.1 mg/dL 06/24/20 18:17 AST 16 units/L (5-40) 06/25/20 07:25 ALT 6 units/L (7-56) L 06/25/20 07:25 Alkaline Phosphatase 50 units/L (35-129) 06/25/20 07:25 Troponin T < 0.010 ng/mL (0.00-0.029) 06/25/20 01:37 NT-Pro-B Natriuret Pep 2780 pg/mL (0-450) H 06/24/20 18:33 Total Protein 6.4 g/dL (6.3-8.2) 06/25/20 07:25 Albumin 3.3 g/dL (3.9-5) L 06/25/20 07:25 Albumin/Globulin Ratio 1.1 % 06/25/20 07:25 Triglycerides 107 mg/dL (2-149) 06/26/20 05:31 Cholesterol 169 mg/dL (50-199) 06/26/20 05:31 LDL Cholesterol Direct 105 mg/dL (50-130) 06/26/20 05:31 HDL Cholesterol 59 mg/dL (40-59) 06/26/20 05:31 Cholesterol/HDL Ratio 2.86 % 06/26/20 05:31 Coronavirus (PCR) Negative (Negative) 06/25/20 Unknown Lombardo/IV: Voiding Method Toilet Active Medications - Current Medications Current Medications: Generic Name Dose Route Start Last Admin Trade Name Freq PRN Reason Stop Dose Admin Acetaminophen 650 mg 06/24/20 23:45 06/25/20 12:46 Acetaminophen 325 Mg Tab PO 650 mg Q4H PRN Administration Pain MILD(1-3)/Fever >100.5/JUAREZ Amlodipine Besylate 10 mg 06/26/20 10:00 Amlodipine 5 Mg Tab PO QDAY [facility] Carvedilol 12.5 mg 06/24/20 23:45 06/25/20 21:23 Carvedilol 12.5 Mg Tab PO 12.5 mg BID THAIS Administration Famotidine 10 mg 06/25/20 10:00 06/25/20 21:23 Famotidine 10 Mg Tab PO 10 mg BID THAIS Administration Heparin Sodium (Porcine) 5,000 unit 06/24/20 23:45 06/25/20 21:25 Heparin 5,000 Unit/1 Ml Vial SUB-Q 5,000 unit Q12HR [facility]AIS Administration Hydralazine HCl 100 mg 06/26/20 14:00 Hydralazine 100 Mg Tab PO Q8HR [facility] Sodium Chloride 1,000 mls @ 42 mls/hr 06/25/20 14:30 Nacl 0.9% 1000 Ml IV DIRECT [facility] Potassium Chloride 10 meq in 100 mls @ 100 mls/hr 06/26/20 08:30 Kcl 10meq/100ml IV 06/26/20 12:29 Q1H [facility] Metoclopramide HCl 10 mg 06/24/20 23:45 Metoclopramide 10 Mg/2 Ml Inj IV Q6H PRN Nausea And Vomiting Nitroglycerin 0.4 mg 06/25/20 19:04 Nitroglycerin 0.4 Mg Tab Subl SL .Q5MIN PRN Chest Pain Ondansetron HCl 4 mg 06/24/20 23:45 Ondansetron 4 Mg/2 Ml Inj IV Q8H PRN Nausea And Vomiting Oxycodone/Acetaminophen 1 tab 06/24/20 23:45 Oxycodone /Acetaminophen 5-325mg Tab PO Q6H PRN Pain, Moderate (4-6) Sodium Chloride 10 ml 06/25/20 10:00 06/25/20 21:26 Sodium Chloride 0.9% 10 Ml Flush Syringe IV 10 ml BID THAIS Administration Sodium Chloride 10 ml 06/24/20 23:45 Sodium Chloride 0.9% 10 Ml Flush Syringe IV PRN PRN LINE FLUSH
--- NOTE | 2020-06-26 11:12 | Electrocardiograph Report ---
[facility] Test Date: 2020-06-24 Test Time: 18:08:31 Pat Name: ANDRIA SWEET Department: Room: A459 1 Gender: F [employer] Lab[employer]: BEN : [id number] Requested By: SATINDER KING Order Number: [id number] Reading MD: Jeffery Olvera Measurements Intervals [place] Rate: 64 P: 23 CT: 162 QRS: -35 QRSD: 94 T: 122 QT: 453 QTc: 468 Interpretive Statements Sinus rhythm Left axis deviation Abnormal T, consider ischemia, lateral leads No previous ECG available for comparison Electronically Signed On 06-26-2020 11:11:44 EDT by Jeffery Olvera
[2020-06-26] MEDS ORDERED: POTASSIUM CHLORIDE ER 20 MEQ TAB PO NR (13:17)
[2020-06-26] MEDS: hydrALAZINE 100 MG TAB PO SCH ×2 (13:28→21:30)
[2020-06-26] MEDS ORDERED: hydrALAZINE 20 MG/1 ML INJ IV PRN (16:33)
--- NOTE | 2020-06-26 16:36 | Progress Note ---
Assessment and Plan * Chest pain * Chest pain is currently resolved. * Repeat 12-lead reviewed no ST segment elevation. Troponins negative x3. MS ruled out * Lexiscan MPI stress test reviewed negative for reversible ischemia * Echocardiogram reviewed (06/25/2020): L the EF greater than 55%. LV SF is normal. Mild concentric LVH. LV DF is abnormal. RV SF is normal. Left atrium is severely dilated. Right atrium size is normal. Intra-arterial septum is intact with no evidence for an atrial septal defect. No valvular abnormalities. * Accelerated hypertension * Continue current antihypertensive regimen: Amlodipine 10 mg p.o. daily, Coreg 12.5 mg p.o. twice daily, hydralazine 100 mg 3 times daily. * Acute kidney injury * No ACEI/ARB in setting of acute kidney injury. Avoid nephrotoxic agents. * DVT prophylaxis * Heparin SQ Patient is currently in stable cardiac status. Patient is chest pain-free and hypertension significantly improved. Patient may discharge from cardiac standpoint. Patient should follow-up in our office with Dr Stepan Caceres within 1 to 2 weeks of discharge. #[id number] Patient was seen in conjunction with Dr Elaine Olvera who agrees with assessment and plan of care - Patient Problems (1) Chest pain Current Visit: Yes Status: Acute (2) Hypertensive emergency Current Visit: Yes Status: Acute (3) PERCY (acute kidney injury) Current Visit: Yes Status: Acute (4) ETOH abuse Current Visit: Yes Status: Chronic (5) Tobacco abuse Current Visit: Yes Status: Chronic Subjective Date of service: 06/26/20 Principal diagnosis: Chest Pain, Hypertensive Urgency Interval history: Patient resting comfortably in bed. No shortness of breath or chest pain overnight. Telemetry reviewed: Sinus rhythm 60. No events Objective Last Vital Signs Temp 98.6 F 06/26/20 16:01 Pulse 66 06/26/20 16:01 Resp 18 06/26/20 16:01 BP 178/98 06/26/20 16:01 Pulse Ox 98 06/26/20 16:01 - Physical Examination General: No Apparent Distress HEENT: Positive: EOMI, Normocephaly, Mucus Membranes Moist Neck: Positive: neck supple, trachea midline. Negative: JVD/HJR Cardiac: Positive: Reg Rate and Rhythm, S1/S2 Lungs: Positive: Normal Exam, Normal Breath Sounds Neuro: Positive: Grossly Intact Abdomen: Positive: Soft. Negative: Tender Skin: Negative: Rash Musculoskeletal: Normal Range of Motion Extremities: Present: upper extr. pulses, lower extr. pulses. Absent: edema - Labs and Meds Lipids 06/26/20 Range/Units 05:31 Triglycerides 107 (2-149) mg/dL Cholesterol 169 (50-199) mg/dL HDL Cholesterol 59 (40-59) mg/dL Cholesterol/HDL Ratio 2.86 % Comprehensive Metabolic Panel 06/26/20 Range/Units 05:31 Sodium 137 (137-145) mmol/L Potassium 3.5 L (3.6-5.0) mmol/L Chloride 104.4 (98-107) mmol/L Carbon Dioxide 23 (22-30) mmol/L BUN 23 H (7-17) mg/dL Creatinine 2.0 H (0.6-1.2) mg/dL Glucose 83 (65-100) mg/dL Calcium 8.3 L (8.4-10.2) mg/dL - Imaging and Cardiology EKG: report reviewed, image reviewed Nuclear stress test: report reviewed Echo: report reviewed - Telemetry EKG Rhythm: Sinus Rhythm - EKG Sinus rhythms and dysrhythmias: sinus rhythm Chamber hypertrophy or enlargement: left ventricular hypertro
[2020-06-26] MEDS: NIFEdipine XL 60 MG TAB PO SCH ×2 (21:30→22:17)
[2020-06-26] MEDS: ACETAMINOPHEN 325 MG TAB PO PRN (22:45)
--- NOTE | 2020-06-26 22:59 | Treadmill Report ---
DATE OF SERVICE: 06/26/2020 NUCLEAR STRESS TEST PROTOCOL: The patient was assessed in postoperative state, given 10 mCi technetium at rest. The patient underwent rest imaging. The patient underwent Lexiscan stress test per standard protocol. At peak stress, the patient was given 26 mCi of Technetium-99m. Shortly thereafter, the patient underwent stress imaging. Raw imaging reveals mild GI artifact. No significant motion artifact. SPECT images were examined carefully in the horizontal long axis, vertical long axis, short axis views. There is normal homogenous uptake of radioisotope in all segments. No evidence of a significant fixed or reversible perfusion defect suggestive of prior infarct or ischemia. Gated wall motion reveals normal systolic thickening. Calculated ejection fraction of 57%. No TID. CONCLUSION: Technically difficult study, but grossly probably normal without evidence of significant fixed or reversible perfusion defect suggestive of prior infarction or ischemia. Gated wall motion reveals normal systolic thickening, calculated ejection fraction of 57%. No TID. TID: [id number] RECEIPT: [id number] [facility]
[2020-06-27 04:21] VITALS: BP 151/95
[2020-06-27] MEDS: hydrALAZINE 100 MG TAB PO SCH (05:37)
--- NOTE | 2020-06-27 08:13 | Treadmill Report ---
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
[2020-06-27] MEDS: ACETAMINOPHEN 325 MG TAB PO PRN (08:14)
[2020-06-27] MEDS: HEPARIN 5,000 UNIT/1 ML VIAL SUB-Q SCH (09:48)
[2020-06-27] MEDS: carvediloL 12.5 MG TAB PO SCH (09:48)
[2020-06-27] MEDS: NIFEdipine XL 60 MG TAB PO SCH (09:48)
[2020-06-27] MEDS: FAMOTIDINE 10 MG TAB PO SCH (09:48)
--- NOTE | 2020-06-27 11:12 | Progress Note ---
Assessment and Plan Telemetry reviewed: Sinus rhythm 73. No events. * Chest pain * Chest pain is currently resolved. Patient is currently chest pain-free and had no episodes of chest pain or shortness of breath overnight. * Repeat 12-lead reviewed no ST segment elevation. Troponins negative x3. OK ruled out * Lexiscan MPI stress test reviewed (06/26/2020): Negative for reversible ischemia * Echocardiogram reviewed (06/25/2020): LVEF greater than 55%. LV SF is normal. Mild concentric LVH. LV DF is abnormal. RV SF is normal. Left atrium is severely dilated. Right atrium size is normal. Intra-arterial septum is intact with no evidence for an atrial septal defect. No valvular abnormalities. * Accelerated hypertension * Continue current antihypertensive regimen: Continue Coreg 12.5 mg p.o. daily, nifedipine XL 60 mg p.o. twice daily, hydralazine 100 mg 3 times daily * Acute kidney injury * No ACEI/ARB in setting of acute kidney injury. Avoid nephrotoxic agents. * DVT prophylaxis * Heparin SQ Patient is currently in stable cardiac status. Patient is chest pain-free and hypertension significantly improved. Patient may discharge from cardiac standpoint. Patient should follow-up with Dr. Caceres in our [place] office on 07/12/2020 at 1 PM. #[id number] Patient was seen in conjunction with Dr Elaine Olvera who agrees with assessment and plan of care - Patient Problems (1) Chest pain Current Visit: Yes Status: Acute (2) Hypertensive emergency Current Visit: Yes Status: Acute (3) PERCY (acute kidney injury) Current Visit: Yes Status: Acute (4) ETOH abuse Current Visit: Yes Status: Chronic (5) Tobacco abuse Current Visit: Yes Status: Chronic Subjective Date of service: 06/27/20 Principal diagnosis: Chest Pain, Hypertensive Urgency Interval history: Patient resting comfortably in bed. No shortness of breath or chest pain overnight. Telemetry reviewed: Sinus rhythm 73. No events Objective Last Vital Signs Temp 99.2 F 06/27/20 03:56 Pulse 69 06/27/20 04:00 Resp 18 06/27/20 03:56 BP 151/95 06/27/20 03:56 Pulse Ox 98 06/27/20 03:56 - Physical Examination General: No Apparent Distress HEENT: Positive: EOMI, Normocephaly, Mucus Membranes Moist Neck: Positive: neck supple, trachea midline. Negative: JVD/HJR Cardiac: Positive: Reg Rate and Rhythm, S1/S2 Lungs: Positive: clear to auscultation, Normal Breath Sounds Neuro: Positive: Grossly Intact Abdomen: Positive: Soft. Negative: Tender Skin: Negative: Rash Musculoskeletal: Normal Range of Motion Extremities: Present: upper extr. pulses, lower extr. pulses. Absent: edema - Imaging and Cardiology EKG: report reviewed, image reviewed Echo: report reviewed - Telemetry EKG Rhythm: Sinus Rhythm - EKG Sinus rhythms and dysrhythmias: sinus rhythm Chamber hypertrophy or enlargement: left ventricular hypertro
[2020-06-27] MEDS ORDERED: LISINOPRIL 5 MG TAB PO SCH (12:00)
--- NOTE | 2020-06-27 12:21 | Discharge Summary ---
Providers - Providers Date of Admission: 06/24/20 19:28 Date of discharge: 06/27/20 Attending physician: ROBERTO JARA 06/25/20 08:11 Consult to Physician [CONS] Routine Comment: called ans. serv. / giancarlo Consulting Provider: VICTOR M JUSTIN Physician Instructions: Reason For Exam: COURTNEY Primary care physician: NEWSWRITER Hospitalization Condition: Stable Hospital course: This is a 50-year-old AA female with a past medical hx of HTN (dx > 10 years ago) who presented with complaints of acute onset chest pain when she arrived at work. Pt denies any additional associated sx, including SOB, palpitations, dizziness, lightheadedness, syncope, abd pain, or N/V. Trop neg x 3. ECG reveals no acute ischemic changes. BP significantly elevated upon arrival 229/118 mmHg, with evidence of PERCY/CKD on labs at admission as well. Pt states she has been out of her antihypertensive meds x 1 week because she has been busy caring for her mother, who has stage 4 breast CA. Patient was admitted to the hospital for further evaluation and management, cardiology was consulted. -Chest pain is currently resolved. Patient is currently chest pain-free and had no episodes of chest pain or shortness of breath overnight. -Repeat 12-lead showed no ST segment elevation. Troponins negative x3. DE ruled out -Lexiscan MPI stress test (06/26/2020): Negative for reversible ischemia -Echocardiogram (06/25/2020): LVEF greater than 55%. LV SF is normal. Mild concentric LVH. LV DF is abnormal. RV SF is normal. Left atrium is severely dilated. Right atrium size is normal. Intra-arterial septum is intact with no evidence for an atrial septal defect. No valvular abnormalities. -Her BP also improved and she will continue current antihypertensive regimen: Continue Coreg 12.5 mg p.o. daily, nifedipine XL 60 mg p.o. twice daily, hydralazine 100 mg 3 times daily -Renal function remains stable with creatinine between 1.9-2.0. Patient recommended to have repeat BMP in 1 week and follow-up with nephrology as outpatient. -No ACEI/ARB in setting of acute kidney injury. Avoid nephrotoxic agents. -Patient was cleared for discharge by cardiology and discharge plan and management was thoroughly discussed with the patient and she verbalized understanding. -Patient was then discharged home in stable condition with outpatient follow-up. Disposition: DC-01 TO HOME OR SELFCARE Final Discharge Diagnosis (Prints w/discharge instructions): Acute chest pain, likely due to GERD or from uncontrolled blood pressure. Hypertensive emergency. Chronic EtOH abuse. Chronic tobacco abuse. Noncompliance. Obesity. CKD stage 3 Time spent for discharge: 34 minutes Core Measure Documentation - Palliative Care Palliative Care/ Comfort Measures: Not Applicable - Core Measures Any of the following diagnoses?: none Exam - Physical Exam Narrative exam: GENERAL: well-developed and obese white female lying on bed appeared to be in no discomfort. HEENT: Normocephalic. Atraumatic. No conjunctival congestion or icterus. Patient has moist mucous membranes. NECK: Supple. Trachea midline. CHEST/LUNGS: Clear to auscultated bilaterally, breathing nonlabored. No wheezes crackles or rhonchi. HEART/CARDIOVASCULAR: Regular in rate and rhythm. S1 and S2 positive. ABDOMEN: Abdomen is soft, nontender. Patient has normal bowel sounds. SKIN: There is no rash. Warm and dry. NEURO: No focal motor deficit. Follows command. MUSCULOSKELETAL: No joint effusion or tenderness. EXTRIMITY: No edema, no cyanosis or clubbing. PSYCH: Cooperative. - Constitutional Vitals: Temp Pulse Resp BP Pulse Ox 99.2 F 69 18 151/95 98 06/27/20 03:56 06/27/20 04:00 06/27/20 03:56 06/27/20 03:56 06/27/20 03:56 Plan Activity: advance as tolerated Weight Bearing Status: Weight Bear as Tolerated Diet: low fat, low salt Special Instructions: record daily BP diary Additional Instructions: Repeat BMP in 1 week. Please follow-up with lead network architect in 1 week for your chronic kidney disease. Please be compliant with your antihypertensive medications Follow up with: PRIMARY CAREMD [Primary Care Provider] - 3-5 Days DEVON PUTNAM MD [Staff Physician] - 7 Days Prescriptions: hydrALAZINE [Apresoline TAB] 100 mg PO Q8HR #90 tab carvediloL [Coreg] 12.5 mg PO BID #60 tablet Aspirin EC [Halfprin EC] 81 mg PO QDAY #30 tablet. NIFEdipine XL [Procardia Xl] 60 mg PO Q12HR #60 tablet
--- NOTE | 2020-06-27 15:49 | Ultrasound Report ---
ULTRASOUND RENAL INDICATION / CLINICAL INFORMATION: CKD. COMPARISON: None available. FINDINGS: RIGHT KIDNEY: Length = 10.7 cm. - Echogenicity: Increased - Cortical Thickness: Normal. - Hydronephrosis: None. - Cyst / Mass: 3.6 cm cyst in the lower pole - Stones: None seen. LEFT KIDNEY: Length = 10.6 cm. - Echogenicity: Increased - Cortical Thickness: Normal. - Hydronephrosis: None. - Cyst / Mass: 1.6 cm cyst in the lower pole - Stones: None seen. URINARY BLADDER: No significant abnormality. FREE FLUID: None. ADDITIONAL FINDINGS: None. IMPRESSION: 1. The kidneys are echogenic characteristic of medical renal disease. There is no hydronephrosis proc ess. There are bilateral renal cysts. Signer Name: Cruzito Barrow MD Signed: 06/27/2020 3:45 PM Workstation Name: [id number]
--- NOTE | 2020-06-29 11:33 | Electrocardiograph Report ---
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
== END 2020-06-27 16:47 | disposition home or self-care (01) | DRG 392 ==
LOC: ED 17:28 → CC1 19:28 → 4A 06-25 16:33
PROVIDERS: ADMIT Internal Medicine; ATTEND Internal Medicine
DX: K21.9 Gastro-esophageal reflux disease without esophagitis (principal); I16.1 Hypertensive emergency; N17.9 Acute kidney failure, unspecified; Z20.822 Contact with and (suspected) exposure to COVID-19; N18.30 Chronic kidney disease, stage 3 unspecified; I12.9 Hypertensive chronic kidney disease with stage 1 through stage 4 chronic kidney disease, or unspecified chronic kidney disease; E66.9 Obesity, unspecified; F10.10 Alcohol abuse, uncomplicated; Y90.9 Presence of alcohol in blood, level not specified; Z91.14 Patient's other noncompliance with medication regimen; Z79.899 Other long term (current) drug therapy; Z82.49 Family history of ischemic heart disease and other diseases of the circulatory system; Z71.6 Tobacco abuse counseling; Z68.32 Body mass index [BMI] 32.0-32.9, adult; Z85.3 Personal history of malignant neoplasm of breast
CPT/HCPCS: 36415; 71045; 76770; 78452; 80048; 80053; 80061; 80076; 83036; 83880; 84484; 85025; 85610; 85730; 93005; 93017; 93306; 96365; 96375; 99406; G0378; A9502; J0360; J1644; J2785; J3480; J7030; J7050; U0003

== ENCOUNTER 2021-08-07 14:53 | Emergency (ER) | payer SELFPAY ==
[2021-08-07 15:22] VITALS: BP 191/124
--- NOTE | 2021-08-07 16:07 | XRay Report ---
CHEST 2 VIEWS INDICATION / CLINICAL INFORMATION: chest pain. COMPARISON: June 2020 FINDINGS: SUPPORT DEVICES: None. HEART / MEDIASTINUM: No significant abnormality. LUNGS / PLEURA: No significant pulmonary or pleural abnormality. No pneumothorax. ADDITIONAL FINDINGS: No significant additional findings. IMPRESSION: 1. No acute findings. Signer Name: Pierre Martinez MD Signed: 08/07/2021 4:03 PM Workstation Name: [id number]
[2021-08-07 16:08] LABS: Basophils # (Auto) 0.1 K/mm3 (0.0-0.1); Basophils % (Auto) 0.9 % (0.0-1.8); Eosinophils # (Auto) 0.1 K/mm3 (0.0-0.4); Eosinophils % (Auto) 2.1 % (0.0-4.3); Hematocrit 40.2 % (30.3-42.9); Hemoglobin 12.9 gm/dl (10.1-14.3); Lymphocytes # (Auto) 0.9 K/mm3 (1.2-5.4); Lymphocytes % (Auto) 14.3 % (13.4-35.0); Mean Corpuscular HGB Conc 32 % (30-34); Mean Corpuscular Volume 90 fl (79-97); Monocytes # (Auto) 0.5 K/mm3 (0.0-0.8); Monocytes % (Auto) 8.2 % (0.0-7.3); Platelet Count 250 K/mm3 (140-440); Red Blood Count 4.48 M/mm3 (3.65-5.03); Red Cell Distribution Width 15.8 % (13.2-15.2)
[2021-08-07 16:52] LABS: Alanine Aminotransferase 18 units/L (7-56); Albumin 4.3 g/dL (3.9-5); BUN/Creatinine Ratio 19; Blood Urea Nitrogen 28 mg/dL (7-17); Calcium 9.2 mg/dL (8.4-10.2); Hemolysis Index 30
[2021-08-07 17:04] LABS: INR 0.8 (0.87-1.13)
[2021-08-07 17:05] LABS: Partial Thromboplastin Time 23.4 Sec. (24.2-36.6)
--- NOTE | 2021-08-09 18:57 | Electrocardiograph Report ---
[facility] Test Date: 2021-08-07 Test Time: 15:02:10 Pat Name: ANDRIA SWEET Department: Room: Gender: F Pick Up Driver: KRISTYN : 1970 Requested By: SATINDER KING Order Number: [id number] Reading MD: Lio Horn Measurements Intervals [place] Rate: 67 P: 29 [place]: 174 QRS: -34 QRSD: 93 T: 24 QT: 448 QTc: 473 Interpretive Statements Sinus rhythm Left axis deviation Consider old anterior infarct Compared to ECG 06/26/2020 11:01:06 No significant change Electronically Signed On 08-09-2021 18:56:49 EDT by Lio Horn
== END 2021-08-07 23:00 | disposition left against medical advice (07) ==
LOC: ED 14:53
DX: R07.9 Chest pain, unspecified (principal); Z53.21 Procedure and treatment not carried out due to patient leaving prior to being seen by health care provider
CPT/HCPCS: 36415; 71046; 80053; 83735; 84100; 84484; 85025; 85610; 85730; 93005